=== PATIENT | male | born 1990 | race African-American/Black ===

== ENCOUNTER 2024-10-02 14:18 | Emergency (ER) | payer MEDICAID ==
[~2024-10-02] VITALS: Ht 180.3 cm; Wt 98.0 kg
[2024-10-02 14:30] VITALS: TEMP 37; O2SAT 99
[2024-10-02 14:47] VITALS: BP 118/78; PULSE 71; RESP 18
[2024-10-02] MEDS: KETOROLAC 30MG/ML VIAL IM STA (14:47)
[2024-10-02] MEDS ORDERED: HYDR-4001 MT (16:17)
[2024-10-02] MEDS ORDERED: IBUP-2029 PO (16:17)
== END 2024-10-02 16:35 | disposition home or self-care (01) ==
LOC: ER 14:47
DX: S62.340A Nondisplaced fracture of base of second metacarpal bone, right hand, initial encounter for closed fracture (principal); I10 Essential (primary) hypertension; Z79.899 Other long term (current) drug therapy; Y04.0XXA Assault by unarmed brawl or fight, initial encounter; Y93.89 Activity, other specified; Y92.89 Other specified places as the place of occurrence of the external cause; Y99.8 Other external cause status
CPT/HCPCS: 99284; 73080; 73110; 73130; 96372; J1885; A6449; A4565

== ENCOUNTER 2024-10-22 17:25 | Emergency (ER) | payer MEDICAID ==
[~2024-10-22] VITALS: Ht 182.9 cm; Wt 93.0 kg
[~2024-10-22 17:25] MED LIST: HYDR-4001 MT; IBUP-2029 PO
[2024-10-22 17:28] VITALS: BP 118/70; TEMP 36.5; O2SAT 98
[2024-10-22 17:29] VITALS: PULSE 90; RESP 16; O2SAT 100
== END 2024-10-22 21:26 | disposition home or self-care (01) ==
LOC: ER 17:25
DX: S62.390D Other fracture of second metacarpal bone, right hand, subsequent encounter for fracture with routine healing (principal); X58.XXXD Exposure to other specified factors, subsequent encounter
CPT/HCPCS: 99281